=== PATIENT | female | born 1980 | race African-American/Black ===

== ENCOUNTER 2017-08-12 01:53 | Observation (INO) ==
[2017-08-12] MEDS ORDERED: KETOROLAC 30 MG/1 ML VIAL IV STA (03:06)
[2017-08-12] MEDS ORDERED: ASPIRIN 325 MG TABLET PO STA (03:06)
[2017-08-12 03:07] LABS: Basophils # 0.1 10*3/uL (0.0-0.2); Basophils % 0.8 % (0.0-0.8); Eosinophils # 0.1 10*3/uL (0.0-0.87); Eosinophils % 1.4 % (0.00-10.9); Hematocrit 34.9 VOL% (35.7-47.0); Hemoglobin 10.7 GM/DL (12.0-16.0); Immature Granulocytes % 0.3 %; Immature Granulocytes Absolute 0.02 #; Lymphocytes % 46.9 % (21.3-54.2); Mean Corpuscular HGB Conc 30.7 GM/DL (32-36); Mean Corpuscular Hemoglobin 22 PG (27-34); Mean Corpuscular Volume 72.9 FL (87-102); Mean Platelet Volume 9.7 FL (9.6-12.0); Monocytes # 0.5 10*3/uL (0.11-0.8); Monocytes % 7.1 % (1.7-12.7); Neutrophils # 2.8 10*3/uL (1.4-7.4); Neutrophils % 43.5 % (38.7-73.9); Platelet Count 300 T/CUMM (130-400); Red Blood Count 4.79 MC/CUMM (3.8-5.5); Red Cell Distribution Width 16.1 % (9.3-17.3); White Blood Count 6.4 T/CUMM (4-12)
[2017-08-12] MEDS ORDERED: PANTOPRAZOLE 40 MG VIAL IV STA (03:07)
[2017-08-12 03:13] LABS: PT Patient Result 10.3 SECS; Partial Thromboplastin Time 24.5 SECS (0-40)
[2017-08-12 03:21] LABS: Alanine Aminotransferase 35 U/L (13-56); Albumin 3.6 G/DL (3.4-5.0); Alkaline Phosphatase 106 U/L (45-117); Aspartate Amino Transferase 24 U/L (0-37); Bilirubin,Total < 0.39 MG/DL (0.2-1.0); Blood Urea Nitrogen 7 MG/DL (7-18); Calcium 8.7 MG/DL (8.5-10.1); Glucose 233 MG/DL (74-106); Osmolality,Calculated 279.7 MOS/KG (273-304); Potassium 3.5 MMOL/L (3.5-5.1); Sodium 138 MMOL/L (136-145); Total Protein 7.8 G/DL (6.4-8.3); Troponin I Only < 0.015 NG/ML (0.00-0.045)
[2017-08-12] MEDS ORDERED: MORPHINE 4 MG/1 ML VIAL IV STA (04:09)
[2017-08-12] MEDS ORDERED: ONDANSETRON 4 MG/2 ML VIAL IV STA (04:09)
[2017-08-12] MEDS ORDERED: POTASSIUM CHLORIDE 20 MEQ TABLET PO PRN (05:35)
[2017-08-12] MEDS ORDERED: ONDANSETRON 4 MG/2 ML VIAL IV PRN (05:35)
[2017-08-12] MEDS ORDERED: INSULIN REGULAR 100 UNIT/ML SUBCUT ONE (05:35)
[2017-08-12 06:26] LABS: Risk Ratio 3.05
[2017-08-12] MEDS ORDERED: ASPIRIN EC 325 MG TABLET PO SCH (09:00)
[2017-08-12 12:21] VITALS: BP 131/81
[2017-08-12] MEDS ORDERED: ACETAMINOPHEN 325 MG TABLET PO PRN (13:17)
[2017-08-12] MEDS ORDERED: ACETAMINOPHEN 325 MG TABLET ONE (13:24)
== END 2017-08-12 15:40 | disposition home or self-care (01) ==
LOC: N.EDINP 01:53 → N.ED 01:53 → N.TELES 06:17